=== PATIENT | female | born 1945 | race Caucasian/White ===

== ENCOUNTER 2019-05-30 09:47 | Outpatient (CLI) | payer MEDICARE, SELFPAY ==
--- NOTE | ~2019-05-30 | MM_ITS ---
EXAMINATION: MM screening rafi BI w haris HISTORY: Screening mammogram TECHNIQUE: Craniocaudal and mediolateral oblique 3-D tomosynthesis images were obtained and synthetic 2-D images were generated. CAD analysis was submitted and interpreted. COMPARISON: 03/23/2018, 06/30/2016, 11/03/2015 bilateral digital screening mammogram examinations BREAST PARENCHYMAL COMPOSITION: The breasts are almost entirely fatty. FINDINGS: surveillance system monitor device and pacemaker are noted on the left. There is no evidence of suspici ous mass, calcification, or architectural distortion to suggest malignancy in either breast. There webb s been no suspicious interval change. IMPRESSION: 1. No mammographic evidence of malignancy. 2. Recommend routine screening mammography in one year. BI-RADS Category 1: Negative Reviewed, dictated and finalized at location A. UP WORKER
== END 2019-05-30 09:48 | disposition home or self-care (01) ==
LOC: ANHIMG 09:52
PROVIDERS: PCP Family Medicine; Visit Provider Obstetrics & Gynecology
DX: Z12.31 Encounter for screening mammogram for malignant neoplasm of breast (principal)
CPT/HCPCS: 77063; 77067

== ENCOUNTER 2020-09-06 08:05 | Outpatient (CLI) | payer MEDICARE, SELFPAY ==
[2020-09-06 08:23] LABS: Basophils Percent Auto 0.6 % (0.2-1.2); Eosinophils Absolute Auto 0.2 K/mm3 (0-0.3); Eosinophils Percent Auto 3.2 % (0-4.4); Hematocrit 42.1 % (37.0-47.0); Immature Granulocyte Absolute 0.01 K/mm3 (0.00-0.031); Immature Granulocyte Percent A 0.2 % (0-0.5); Lymphocytes Absolute Auto 1.57 K/mm3 (0.9-3.2); Lymphocytes Percent Auto 31.8 % (18.3-44.2); Mean Corpuscular HGB Conc 33.3 g/dl (32-36); Mean Corpuscular Hemoglobin 30.4 pg (26-34); Mean Corpuscular Volume 91.5 fl (80-100); Mean Platelet Volume 9.4 fl (7.4-10.4); Monocytes Absolute Auto 0.5 K/mm3 (0.1-0.6); Monocytes Percent Auto 10.5 % (2.6-8.5); Neutrophils Absolute Auto 2.6 K/mm3 (1.3-6.7); Neutrophils Percent Auto 53.7 % (45.5-73.1); Platelet Count Result 197 k/mm3 (150-375); Red Cell Distribution Width 13.3 % (11.5-14.5); White Blood Count 4.9 K/mm3 (4.5-10.0)
[2020-09-06 08:35] LABS: Alanine Aminotransferase 27 U/L (4-35); Albumin Level 4.4 g/dL (3.5-5.1); Alkaline Phosphatase 140 U/L (38-126); Anion Gap 11 mmol/L (8-16); Aspartate Amino Transferase 35 U/L (14-36); Bilirubin,Total 0.7 mg/dL (0.2-1.3); Blood Urea Nitrogen 24 mg/dL (7-17); Calcium 9.9 mg/dL (8.4-10.2); Carbon Dioxide 23 mmol/L (22-30); Chloride 110 mmol/L (98-107); Cholesterol 173 mg/dL (0-200); Estimated Glomerular Filt Rate 54; Glucose 102 mg/dL (65-105); HDL Direct 86 mg/dL; Potassium 4.2 mmol/L (3.4-5.0); Sodium 144 mmol/L (137-145); Triglycerides 155 mg/dL (<150)
[2020-09-06 08:46] LABS: LDL Cholesterol Direct 55 mg/dL
[2020-09-06 09:26] LABS: Vitamin B12 > 1000.0 pg/mL (239-931)
[2020-09-06 09:37] LABS: Vitamin D 25 Hydroxy 87.3 ng/mL
== END 2020-09-06 08:06 | disposition home or self-care (01) ==
PROVIDERS: PCP Family Medicine; Visit Provider Nurse Practitioner Family
DX: E78.5 Hyperlipidemia, unspecified (principal); E53.8 Deficiency of other specified B group vitamins; R20.0 Anesthesia of skin; E78.2 Mixed hyperlipidemia; E55.9 Vitamin D deficiency, unspecified
CPT/HCPCS: 36415; 80053; 80061; 82306; 82607; 84443; 85025

== ENCOUNTER 2020-12-04 07:17 | Outpatient (RCR) | payer MEDICARE, SELFPAY ==
--- NOTE | 2020-12-04 08:21 | OTOPEVAL ---
OCCUPATIONAL THERAPY EVALUATION REPORT AND DISCHARGE SUMMARY 12/04/20 Radha is a 75 year-old, right handed female that presents to outpatient OT with OA of the right middle finger. At this time the patient does not have pain, but does have reports of weakness, noting difficulties with opening jars/containers and intermittently dropping items. Issued HEPs for active ROM and strengthening. Discussed at length joint protection techniques, activity modifications, and use of adaptive equipment/techniques for ADLs. Patient verbalizes excellent understanding of all materials today and is in agreement with discharge. D/C today with patient independent with HEP. Thank you for referring Radha Faye to [facility].? Please review, sign, date and return this D/C Note BRENT. I agree with and certify that the following plan of care is medically necessary. Referring Physician Date Referring Provider: Leonid Khan MD *OT Outpatient Evaluation Start: 12/04/20 07:30 Evaluation Information Problem Diagnosis Primary OA, right hand Onset about 6 months Subjective Information Patient reports difficulties Query Text:As Reported By Patient/ with stiffness, pain, and Family weakness in her right, dominant hand, particularly the middle finger. Pain Assessment Timing of Pain Assessment Timing of Pain Assessment Assessment Pain Scale Pain Scale Used Numeric (1 - 10) Self Report Pain Assessment Right Finger, Middle Reported Pain Level 0 Lowest Pain Intensity 0 Greatest Pain Intensity 10 Pain Score Pain Score 0: Self Report Additional Pain Score Comments Patient reports when her hand is bad the pain can get up to 9-10. Upper Extremity Range of Motion Finger Range of Motion Right Reason Not Measured WNL/Right Finger Range of Motion Comments Active ROM of all digits is WNL. Full fist, hook fist, lumbricals, and serial opposition is intact. Hand Inletter/Pinch Strength Assessment Hand Left Inletter Strength (lbs) 42 Hand Inletter/Pinch Strength Comments Norm: 42 lbs. Right Inletter Strength (lbs) 36 Hand Inletter/Pinch Strength Comments Norm: 48 lbs. Upper Extremity Exercise Finger/Thumb Exercise Right Other Finger/Thumb Exercises Instructed in active ROM. Patient completes 10 reps: - lumbricals/intrinsic plus - hook fist - full fist - serial opp - finger/thumb abduction and adduction Instructed in gentle strengthening with red putty.
== END 2020-12-04 09:12 | disposition home or self-care (01) ==
LOC: ANHOT 07:17
PROVIDERS: PCP Family Medicine; Visit Provider Orthopaedic Surgery
DX: M19.041 Primary osteoarthritis, right hand (principal)
CPT/HCPCS: 97110; 97165

== ENCOUNTER 2021-05-04 08:46 | Outpatient (CLI) | payer MEDICARE, SELFPAY ==
[2021-05-04 09:49] LABS: Hematocrit 45.5 % (37.0-47.0); Hemoglobin 14.9 g/dL (12.0-15.0); Mean Corpuscular HGB Conc 32.7 g/dl (32-36); Mean Corpuscular Hemoglobin 30.5 pg (26-34); Mean Corpuscular Volume 93.2 fl (80-100); Mean Platelet Volume 9.7 fl (7.4-10.4); Platelet Count Result 214 k/mm3 (150-375); Red Blood Count 4.88 M/mm3 (4.2-5.4); Red Cell Distribution Width 12.8 % (11.5-14.5); White Blood Count 4.2 K/mm3 (4.5-10.0)
[2021-05-04 10:00] LABS: Potassium 4.1 mmol/L (3.4-5.0)
[2021-05-04 10:15] LABS: Alanine Aminotransferase 17 U/L (4-35); Albumin Level 4.6 g/dL (3.5-5.1); Alkaline Phosphatase 106 U/L (38-126); Anion Gap 6 mmol/L (8-16); Aspartate Amino Transferase 29 U/L (14-36); Bilirubin,Total 1.1 mg/dL (0.2-1.3); Blood Urea Nitrogen 19 mg/dL (7-17); Calcium 9.6 mg/dL (8.4-10.2); Carbon Dioxide 28 mmol/L (22-30); Chloride 105 mmol/L (98-107); Estimated Glomerular Filt Rate 54; Glucose 104 mg/dL (65-110); Sodium 139 mmol/L (137-145)
== END 2021-05-04 08:47 | disposition home or self-care (01) ==
PROVIDERS: PCP Family Medicine; Visit Provider Nurse Practitioner Family
DX: K11.20 Sialoadenitis, unspecified (principal); F32.A Depression, unspecified; F41.9 Anxiety disorder, unspecified; R20.0 Anesthesia of skin; E86.0 Dehydration
CPT/HCPCS: 36415; 80053; 84443; 85027

== ENCOUNTER 2021-08-07 01:31 | Day surgery (SDC) | payer MEDICARE, SELFPAY ==
--- NOTE | 2021-07-29 15:39 | PC.NURSE ---
Report to the Outpatient Waiting Room, entrance under the green pavilion located off [facility], at time __1000 on date _08/07/21 . OR Time: _1200 . - You and your visitor will be asked a series of questions to screen for COVID 19 for your protection. - Only one visitor is allowed at this time. - The patient visitor is requested to leave or wait in car when not with patient. - A mask is required within the hospital. Patients may have clear liquids (water, carbonated beverages, clear teas, apple juice) until 3 hours prior to surgery with a maximum of 20 ounces. - No food from midnight until time of surgery - Infants may have breast milk until 4 hours before surgery, infant formula 6 hours prior to surgery. - Children will be allowed to drink immediately following surgery. If applicable, please bring a bottle or sippy cup to assist with drinking. Juice, water, soda, and popsicles are readily available. For infants on formula, please bring formula the day of surgery. Pacifiers are allowed. Take the following medications with a SIP of water the morning of surgery: ___NONE Medications to discontinue per physician __PLAVIX PER DR LECHUGA-PT WILL CALL Date to take last dose Please no make-up, nail italian, hairspray, perfume, deodorant, or body powder the day of surgery. No jewelry (including any body piercings) or valuables the day of surgery, leave them at home. Please take a shower or bath the night before, or the morning of, surgery with an antibacterial soap. Wear comfortable, loose fitting clothing. Children are encouraged to wear pajamas. - Jewelry must be removed prior to entering the operating room. Rings and piercings that are not removed may be cut off. - The hospital will not accept responsibility for valuables. - Please leave all valuables, including medications, at home the day of surgery. If you are going home after surgery, a licensed vibratory pile driver must drive you home. - NO public transportation without another adult. - We recommend that an adult stay with you for 24 hours following discharge. - We also recommend that you do not drive, make important decision, drink alcoholic beverages, or take any drugs that were not prescribed by your health care provider for at least 24 hours after your discharge time. For Pediatric surgeries, we recommend two adults accompany the child home (only one inside the building at this time). Follow any additional instructions given to you from your surgeon. If you or anyone in your household have experienced Covid symptoms in the past week, please notify your surgeon or the nurse liaison at the phone number below for possible testing. Telephone instructions given to ___PATIENT and asked if any additional questions and then verbalized understanding. Patient advised to call surgeon office or pre surgery nurse liaison [phone] if any additional questions.
[2021-07-29 15:44] VITALS: BMI 24.9
--- NOTE | 2021-08-06 16:26 | PM.IMHP ---
H&P: HPI History of Present Illness Date/Time: 08/06/21 16:26 Chief Complaint: Pharyngeal lesion Narrative: patient presents for planned surgical procedure no change in history no change in symptoms Review of Systems Constitutional: Constitutional: Denies fatigue, Denies fever(s) and Denies lethargy Eyes: Eyes: Denies blurry vision and Denies change in vision ENT: Reports as per HPI Cardiovascular: Cardiovascular: Denies chest pain Respiratory: Respiratory: Denies cough Endocrine: Endocrine: Denies fatigue Hematologic/Lymphatic: Hematologic/Lymphatic: Denies easy bleeding, Denies easy bruising and Denies lymphadenopathy Allergic/Immunologic: Allergic/Immunologic: Denies seasonal rhinorrhea FORMERLY [facility] Past Medical History Medical History Acid reflux BMI 25.0-25.9,adult BMI 28.0-28.9,adult Heart attack Height loss High cholesterol History of vaginal delivery x 2 Stroke Surgical History Surgical History H/O excision of mass 09/22/20 excision of skin cyst left buttock H/O hand surgery History of ankle surgery History of back surgery History of cardiac radiofrequency ablation History of open heart surgery History of replacement of both shoulder joints History of tubal ligation Pacemaker S/P right knee surgery Family History Family History Mother Hypertension Father Hypertension Family history of coronary artery disease Family history of emphysema Family history of congenital heart disease Sibling Emphysema of lung Social History Social History Smoking status: Never smoker Second hand tobacco smoke exposure: No Alcohol intake: former Substance use: never Substance use type: does not use Additional living arrangements comments: was dx with Alzheimer's two years ago 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 Gender identity (if verbalized by the patient): Female Spiritual care concerns: No Meds Home Medications and Allergies Home Medications Medication Instructions Recorded Confirmed Type metoprolol succinate 25 mg 25 mg PO HS 05/21/19 07/29/21 History tablet,extended release 24 hr cholecalciferol (vitamin D3) 1,250 1,250 mcg PO WEEKLY 03/02/21 07/29/21 History mcg (50,000 unit) tablet clopidogrel 75 mg tablet See Rx Instructions .ROUTE 06/26/21 07/29/21 Rx .COMPLEX #90 tablet atorvastatin 40 mg PO HS 07/29/21 07/29/21 History bupropion HCl [Wellbutrin XL] 300 mg PO HS 07/29/21 07/29/21 History famotidine 20 mg PO HS 07/29/21 07/29/21 History Allergies Allergy/AdvReac Type Severity Reaction Status Date / Time codeine Allergy Unknown Nausea And Verified 07/29/21 15:09 Vomiting morphine Allergy Unknown Nausea Verified 07/29/21 15:09 Penicillins Allergy Unknown Unknown Verified 07/29/21 15:09 quinine AdvReac Intermediate NAUSEA/VOMI Verified 07/29/21 15:09 TING Exam Const: General: cooperative, healthy appearing, comfortable, well developed and alert HENMT: Head: normal to inspection, normocephalic and atraumatic Ears: hearing grossly normal bilaterally, external ears normal, TM's normal bilaterally and EAC's normal General nose exam: Normal external nose present, Normal nares present, No nasal polyps present, Normal nasal mucous membranes and turbinates present and Normal septum present Face and sinus: normal facial exam Mouth: Yes Normal oral and palatal mucosa present, Yes lip normal, Yes tongue normal, Yes oropharynx normal and Yes moist mucous membranes Teeth and gingiva: dentition normal and gingiva normal Throat: posterior oropharynx normal, tonsils normal and uvula midline Eyes: General: appearance normal, both eyes and all related structures Periorbital: periorbital f
--- NOTE | 2021-08-07 07:15 | WPDHPUPDATE1 ---
History and Physical Update Update Date/Time: 08/07/21 07:15 History and Physical has been reviewed, including an updated exam of the patient. There are NO changes in the patient's condition. Risks, benefits, and alternatives have been discussed and questions answered. Patient agrees to proceed with procedure.
[2021-08-07 13:54] VITALS: BP 125/64; PULSE 75; RESP 18; TEMP 36.6; O2SAT 97; BMI 24.8
[2021-08-07] MEDS: LACTATED RINGERS 1,000 ML 30 ML IV CONT (14:00)
--- NOTE | 2021-08-07 15:40 | WPDANESEPPF ---
Anes - Initial Pre Proc Eval Procedure: Operation Date: 08/07/21 14:30 Proposed Procedures p Direct Laryngoscopy, with Biopsy of Right Pharyngeal Lesion - Ethan Gutierres MD Date/Time: 08/07/21 15:40 Surgeon: Ethan Gutierres MD Pre Op Diagnosis: pharyngeal lesion Patient Data Age: 75 Gender: F Height: 1.63 m Weight: 65.7 kg Last Vital Signs Temp 36.6 C 08/07/21 13:54 Pulse 75 08/07/21 13:54 Resp 18 08/07/21 13:54 BP 125/64 08/07/21 13:54 Pulse Ox 97 08/07/21 13:54 Allergies Allergy/AdvReac Type Severity Reaction Status Date / Time Penicillins Allergy Intermediate Nausea and Verified 08/07/21 12:54 Vomiting codeine Allergy Mild Nausea And Verified 08/07/21 12:54 Vomiting morphine Allergy Mild Nausea Verified 08/07/21 12:54 quinine AdvReac Intermediate NAUSEA/VOMI Verified 08/07/21 12:54 TING Home Medications Medication Instructions Recorded Confirmed Type metoprolol succinate 25 mg 25 mg PO HS 05/21/19 08/07/21 History tablet,extended release 24 hr cholecalciferol (vitamin D3) 1,250 1,250 mcg PO WEEKLY 03/02/21 08/07/21 History mcg (50,000 unit) tablet atorvastatin 40 mg PO HS 07/29/21 08/07/21 History bupropion HCl [Wellbutrin XL] 300 mg PO HS 07/29/21 08/07/21 History famotidine 20 mg PO HS 07/29/21 08/07/21 History aspirin [Adult Low Dose Aspirin] 81 mg PO DAILY 08/07/21 08/07/21 History Patient hx anesthesia problems: none Family hx anesthesia problems: none Results Review: All pre-operative results and documents have been reviewed as part of the pre-operative evaluation. [facility]LY [facility] Past Medical History Medical History Acid reflux BMI 25.0-25.9,adult BMI 28.0-28.9,adult Heart attack Height loss High cholesterol History of vaginal delivery x 2 Stroke Surgical History Surgical History H/O excision of mass 09/22/20 excision of skin cyst left buttock H/O hand surgery History of ankle surgery History of back surgery History of cardiac radiofrequency ablation History of open heart surgery History of replacement of both shoulder joints History of tubal ligation Pacemaker S/P right knee surgery Family History Family History Mother Hypertension Father Hypertension Family history of coronary artery disease Family history of emphysema Family history of congenital heart disease Sibling Emphysema of lung Social History Social History Smoking status: Never smoker Second hand tobacco smoke exposure: No Alcohol intake: former Substance use: never Substance use type: does not use Living arrangements: with family Additional living arrangements comments: was dx with Alzheimer's two years ago 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 Informed Consent: The patient's anesthetic plan and its attendant risks and benefits were discussed with the patient/family/POA. Questions were solicited and answers provided to the satisfaction of the patient/family/POA.
--- NOTE | 2021-08-07 15:46 | SUR.PREOP ---
1300; PT AWARE THAT DR LECHUGA IS 1 HOUR DELAYED.
--- NOTE | 2021-08-07 15:55 | SUR.PREOP ---
SPOKE WITH DR LECHUGA. NO ANTIBIOTIC NEEDED.
[2021-08-07] MEDS: OXYMETAZOLINE HCL 0.05% NAS 15 ML BTL (*BKC) 1 SPRAY NASAL (16:12)
[2021-08-07 16:33] VITALS: BP 145/69; PULSE 72; RESP 10; TEMP 36.6; O2SAT 100
[2021-08-07 16:48] VITALS: BP 146/91; PULSE 72; RESP 15; O2SAT 97
--- NOTE | 2021-08-07 16:52 | W.PM.PROC2 ---
Procedure Note - Detailed Date of Procedure 08/07/21 Pre-op Diagnosis pharyngeal lesion Post-op Diagnosis Same Procedure Performed Direct laryngoscopy with biopsy of right pharyngeal vallecular lesion Surgeon Ethan Gutierres MD Anesthesia General Indications See above Findings Scant amount of mucus tracking into the vallecular right pharyngeal region. No cystic lesion noted today. Base of, or location of previous lesion biopsy to ensure nothing sinister. Description of Procedure Patient identified consent verified. Patient brought operating room. Time-out performed. General anesthesia induced endotracheal tube secured secured airway. Patient prepped and draped for for mentioned procedure bed rotated. Second time-out performed. Dedo laryngoscope inserted in airway after placement maxillary tooth mouth guard. All the anatomic sub sites were reviewed. Small erythroplakia lesion with scant mucus emanating around it on the right loculated pharyngeal region. Cyst or the mucus was suctioned in the region biopsied bleeding controlled with the application of 2 Afrin-soaked pledgets. There was no bleeding following application of pledgets hemostasis was excellent. Biopsy sent for pathologic analysis. Laryngoscope removed maxillary tooth mouth guard removed. Care patient turned Anesthesiology. Total blood loss 1-2 cc. I performed all dictated portions of the procedure there were no immediate complications. Estimated Blood Loss 2 Drains No Packing No Pathology None sent Complications No immediate complications Condition Stable Disposition PACU
[2021-08-07 17:01] VITALS: BP 146/91; PULSE 72; RESP 15; O2SAT 98
[2021-08-07 17:13] VITALS: BP 140/49; PULSE 70
[2021-08-07 17:45] VITALS: BP 133/62; PULSE 67
--- NOTE | 2021-08-07 17:57 | SUR.PHASEII ---
Patient can resume aspirin tomorrow per Dr. Gutierres.
== END 2021-08-07 18:00 | disposition home or self-care (01) ==
PROVIDERS: PCP Family Medicine; Visit Provider Otolaryngology
PROC: 0CJS8ZZ Inspection of Larynx, Via Natural or Artificial Opening Endoscopic (ICD-10-PCS; CPT 31535; principal; 2021-08-07 14:30)
DX: J39.2 Other diseases of pharynx (principal); K21.9 Gastro-esophageal reflux disease without esophagitis; E78.00 Pure hypercholesterolemia, unspecified; I25.2 Old myocardial infarction; Z86.73 Personal history of transient ischemic attack (TIA), and cerebral infarction without residual deficits; Z79.82 Long term (current) use of aspirin
CPT/HCPCS: 31535; 88305; A9270; J0330; J0690; J1100; J2704; J7120

== ENCOUNTER 2021-08-19 08:26 | Outpatient (CLI) | payer MEDICARE, SELFPAY ==
--- NOTE | ~2021-08-19 | XR_ITS ---
[XR ribs BI 3V w CXR 2V ] INDICATION: Chest pain TECHNIQUE: Frontal projection of the upper ribs, frontal projection of the lower ribs, oblique projec tion of all the ribs, frontal inspiratory chest x-ray for interpretation. FINDINGS: Status post median sternotomy for CABG. Pacemaker leads are in expected position. There are bilateral shoulder arthroplasties. There are no displaced rib fractures identified. There are no so ft tissue abnormality seen. The lungs are clear. IMPRESSION: 1:No acute displaced rib fractures. Reviewed, dictated and finalized at location A.
--- NOTE | ~2021-08-19 | XR_ITS ---
EXAMINATION: XR shoulder LT min 2V DATE: 08/19/2021 09:05 INDICATION: Shoulder pain TECHNIQUE: AP internally and externally rotated, AP oblique externally rotated and transscapular Y vi ews of the left shoulder were obtained. COMPARISON: 01/14/2014 FINDINGS: Stable appearance of a noncemented left total shoulder arthroplasty which is in near-anatomic alignme nt. No fracture.Mild acromioclavicular joint. Partially visualized Cardiac pacemaker in expected position. Left pectoral implantable residential monitor. Visualized portion s of the left lung are clear. Soft tissues are unremarkable. IMPRESSION: Left total shoulder arthroplasty in near-anatomic alignment with no acute osseous abnormality. 2. Mild left acromioclavicular osteoarthritis. Reviewed, dictated and finalized at location B. IMPRESSION: Left total shoulder arthroplasty in near-anatomic alignment with no acute osseo us abnormality. 2. Mild left acromioclavicular osteoarthritis.
--- NOTE | ~2021-08-19 | XR_ITS ---
EXAMINATION: XR shoulder RT min 2V DATE: 08/19/2021 09:05 INDICATION: Right shoulder pain TECHNIQUE: AP internally and externally rotated, AP oblique externally rotated and transscapular Y vi ews of the right shoulder were obtained. COMPARISON: 11/06/2020 FINDINGS: Stable appearance of a noncemented right total shoulder arthroplasty which is unchanged in near-anato heather alignment. No fracture. Again seen is thinning of the acromion which could be related to either p rior acromioplasty or secondary to chronic degenerative remodeling. Mild to moderate acromioclavicula r osteoarthritis with small inferiorly directed osteophyte at the lateral head of the clavicle. Soft tissues are unremarkable. Calcified nodule in the right lung consistent with old granulomatous diseas e. Median sternotomy wires, ostial markers and mediastinal surgical clips consistent with prior coron jose artery bypass grafting. Dual lead cardiac pacemaker visualized portion of which appear unremarkab le. IMPRESSION: 1. Stable appearance of a right total shoulder arthroplasty which is in near-anatomic alignment. No a cute osseous abnormality. 2. Mild to moderate right acromioclavicular osteoarthritis. Reviewed, dictated and finalized at location B. IMPRESSION: 1. Stable appearance of a right total shoulder arthroplasty which is in near-an atomic alignment. No acute osseous abnormality. 2. Mild to moderate right acromioclavicular osteoarthritis.
[2021-08-19 09:02] LABS: Cholesterol 170 mg/dL (0-200); HDL Direct 73 mg/dL; Triglycerides 68 mg/dL (<150)
[2021-08-19 09:14] LABS: LDL Cholesterol Direct 58 mg/dL
--- NOTE | 2021-08-19 10:06 | ECHO_ITS ---
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 Strain analysis performed. Summary 1. Complete two-dimensional, color flow and Doppler transthoracic echocardiogram is performed. 2. Left ventricular chamber dimension is normal. 3. Left ventricular systolic function is normal, estimated at 65-70%. 4. There is mildly increased left ventricular wall thickness. 5. The left ventricular diastolic function is grade I diastolic dysfunction. 6. E/e' 11 is mildly elevated. 7. Linear artifact in right ventricle suggestive of catheter(s), pacemaker lead(s), or ICD lead(s). 8. Linear artifact in the right atrium suggestive of catheter(s), pacemaker lead(s), or ICD lead(s). 9. There is mild aortic valve sclerosis. 10. There is mild aortic valve regurgitation. 11. The mitral valve has mildly thickened leaflets and mildly calcified annulus. 12. There is mild mitral valve regurgitation. 13. There is mild to moderate tricuspid valve regurgitation. 14. No pulmonary hypertension, estimated pulmonary arterial systolic pressure is 32 mmHg. Left Ventricle E/e' 11 is mildly elevated. Global longitudinal strain is normal at -17.4%. Ventricular septum is mildly sigmoid shaped. No LVOT obstruction. Left ventricular chamber dimension is normal. Left ventricular systolic function is normal, estimated at 65-70%. There is mildly increased left ventricular wall thickness. The left ventricular diastolic function is grade I diastolic dysfunction. Right Ventricle Linear artifact in right ventricle suggestive of catheter(s), pacemaker lead(s), or ICD lead(s). Right ventricular chamber dimension is normal. Right ventricular systolic function is normal. Left Atria Left atrial chamber dimension is normal. Right Atria Linear artifact in the right atrium suggestive of catheter(s), pacemaker lead(s), or ICD lead(s). Right atrial chamber dimension is normal. Aortic Valve The aortic valve is trileaflet. There is mild aortic valve sclerosis. There is no aortic valve stenosis. There is mild aortic valve regurgitation. Pulmonic Valve There is no pulmonic regurgitation. Mitral Valve The mitral valve has mildly thickened leaflets and mildly calcified annulus. There is no mitral valve stenosis. There is mild mitral valve regurgitation. Tricuspid Valve There is mild to moderate tricuspid valve regurgitation. No pulmonary hypertension, estimated pulmonary arterial systolic pressure is 32 mmHg. Pericardium/Pleural There is no pericardial effusion. Inferior Vena Cava Normal inferior vena cava with >50% collapse upon inspiration consistent with normal right atrial pressure, 5 mmHg. Aorta The aortic root size at the sinus of Valsalva is normal. Left Ventricular Outflow Tract Name Value Normal
== END 2021-08-19 08:27 | disposition home or self-care (01) ==
PROVIDERS: PCP Family Medicine; Referring Provider Physician Assistant Medical; Visit Provider Internal Medicine Cardiovascular Disease
DX: I42.1 Obstructive hypertrophic cardiomyopathy (principal); M25.511 Pain in right shoulder; M25.512 Pain in left shoulder; R07.89 Other chest pain; Z95.0 Presence of cardiac pacemaker; I08.3 Combined rheumatic disorders of mitral, aortic and tricuspid valves; Z96.611 Presence of right artificial shoulder joint; M19.012 Primary osteoarthritis, left shoulder; M19.011 Primary osteoarthritis, right shoulder; Z96.612 Presence of left artificial shoulder joint
CPT/HCPCS: 36415; 71046; 71110; 73030; 80061; 93306

== ENCOUNTER 2021-10-08 15:05 | Outpatient (CLI) | payer MEDICARE, SELFPAY ==
--- NOTE | ~2021-10-08 | DEXA_ITS ---
Bone Density Report Name: GEE CRESPO Age: 75 Sex: Female Ethnicity: White Date of : 1945 Indication: postmenopausal; screening for osteoporosis; height loss; prior fracture; Referring Provider: FLORENTIN LION Study: Bone densitometry was performed. Exam Date: October 08, 2021 Accession number: [id number] Bone Density: Region BMD T-score Z-score Classification AP Spine(L1, L2, L3) 0.979 -0.4 2.1 Normal Femoral Neck (Left) 0.736 -1.0 1.1 Normal Total Hip (Left) 0.892 -0.4 1.5 Normal Femoral Neck (Right) 0.758 -0.8 1.3 Normal Total Hip (Right) 0.898 -0.4 1.5 Normal Total Hip Mean 0.895 -0.4 1.5 Normal World Health Organization criteria for BMD impression classify patients as: Normal (T-score at or above -1.0), Osteopenia (T-score between -1.0 and -2.5), or Osteoporosis (T-score at or below -2.5). 10-year Fracture Risk: FRAX not reported because: All T-scores for Spine Total, Hip Total, Femoral Neck at or above -1.0 Previous Exams: Region Exam Age BMD T-score BMD Change BMD Change Date g/cm2 vs Baseline vs Previous AP Spine (L1-L3) 10/08/2021 75 0.979 -0.4 0.109 (12.5%)# 0.058 (6.3%)* 12/06/2018 73 0.921 -0.9 0.051 (5.8%)# 0.069 (8.1%)* 06/30/2016 70 0.852 -1.5 -0.018 (-2.1%) -0.018 (-2.1%) 12/05/2012 67 0.870 -1.3 Total Hip(Left) 10/08/2021 75 0.892 -0.4 -0.047 (-5.0%) -0.067 (-7.0%) 12/06/2018 73 0.959 0.1 0.020 (2.2%)# 0.037 (4.0%)* 06/30/2016 70 0.922 -0.2 -0.017 (-1.8%) -0.017 (-1.8%) 12/05/2012 67 0.939 0.0 Total Hip(Right) 10/08/2021 75 0.898 -0.4 -0.046 (-4.9%) -0.058 (-6.0%) 12/06/2018 73 0.956 0.1 0.011 (1.2%)# 0.012 (1.2%) 06/30/2016 70 0.944 0.0 0.000 (0.0%)# 0.000 (0.0%)# 12/05/2012 67 0.944 0.0 *Denotes significance at 95% confidence level, LSC for AP Spine = 0.022 g/cm2, LSC for Total Hip = 0.027 g/cm2 # Denotes dissimilar scan types or analysis methods Clinical Information Provided by Patient: Has had a low trauma fracture Has used the following medications: Vitamin D, Calcium Patient maximum height was 67.5 Menopause Age: 49 No regular weight bearing exercise Onset of menses at age 12 Number of children 2 Impression: The patient has normal bone mass. The patient has risk factors, including: previous fracture. The BMD for the Total Hip(Left) decreased, changing by -7.0% since the last DXA exam. The BMD for the Total Hip(Rig
--- NOTE | ~2021-10-08 | MM_ITS ---
EXAMINATION: MM screening [facility] BI w [facility] HISTORY: Screening mammogram TECHNIQUE: Craniocaudal and mediolateral oblique 3-D tomosynthesis images were obtained and synthetic 2-D images were generated. CAD analysis was submitted and interpreted. COMPARISON: 05/30/2019, 03/23/2018 BREAST PARENCHYMAL COMPOSITION: The breasts are almost entirely fatty. FINDINGS: There is no suspicious mass, calcification, or architectural distortion to suggest malignan cy in either breast. There has been no suspicious interval change. IMPRESSION: 1. No mammographic evidence of malignancy. 2. Recommend routine screening mammography in one year. BI-RADS Category 1: Negative Reviewed, dictated and finalized at location A.
== END 2021-10-08 15:06 | disposition home or self-care (01) ==
PROVIDERS: PCP Family Medicine; Visit Provider Obstetrics & Gynecology
DX: Z12.31 Encounter for screening mammogram for malignant neoplasm of breast (principal); R29.890 Loss of height; Z78.0 Asymptomatic menopausal state
CPT/HCPCS: 77063; 77067; 77080

== ENCOUNTER 2022-09-14 09:27 | Outpatient (CLI) | payer MEDICARE, SELFPAY ==
[2022-09-14 10:07] LABS: Alanine Aminotransferase 22 U/L (6-35); Albumin Level 4.5 g/dL (3.5-5.1); Alkaline Phosphatase 109 U/L (38-126); Anion Gap 8 mmol/L (8-16); Aspartate Amino Transferase 27 U/L (14-36); Bilirubin,Total 0.8 mg/dL (0.2-1.3); Blood Urea Nitrogen 27 mg/dL (7-17); Calcium 9.5 mg/dL (8.4-10.2); Carbon Dioxide 25 mmol/L (22-30); Chloride 106 mmol/L (98-107); Cholesterol 149 mg/dL (0-200); Estimated Glomerular Filt Rate > 60; Glucose 92 mg/dL (65-110); HDL Direct 67 mg/dL; Potassium 4.2 mmol/L (3.4-5.0); Sodium 139 mmol/L (137-145); Triglycerides 96 mg/dL (<150)
[2022-09-14 10:18] LABS: LDL Cholesterol Direct 61 mg/dL
== END 2022-09-14 09:28 | disposition home or self-care (01) ==
PROVIDERS: PCP Family Medicine; Visit Provider Internal Medicine Cardiovascular Disease
DX: E78.5 Hyperlipidemia, unspecified (principal)
CPT/HCPCS: 36415; 80053; 80061

== ENCOUNTER 2023-01-27 13:31 | Outpatient (CLI) | payer MEDICARE, SELFPAY ==
--- NOTE | ~2023-01-27 | CT_ITS ---
EXAMINATION: CT knee RT wo con DATE: 01/27/2023 14:09 INDICATION: Right knee pain. TECHNIQUE: Computed tomography (CT) of the right knee was performed without intravenous contrast. Aut omated exposure control and iterative reconstruction technique were employed. The dose-length product was 535.65 mGy-cm. COMPARISON: None FINDINGS: Bone alignment is normal. No fracture. There is moderate osteoarthritis of lateral compartm ent and mild osteoarthritis of medial and patellofemoral compartments. There is a small knee joint ef fusion. IMPRESSION: 1. Moderate right knee osteoarthritis. 2. Small right knee joint effusion. Reviewed, dictated and finalized at location E.
== END 2023-01-27 13:32 | disposition home or self-care (01) ==
PROVIDERS: PCP Family Medicine; Visit Provider Physician Assistant Medical
DX: M17.11 Unilateral primary osteoarthritis, right knee (principal); M25.461 Effusion, right knee; M25.561 Pain in right knee; G89.29 Other chronic pain
CPT/HCPCS: 73700

== ENCOUNTER 2023-04-07 15:27 | Outpatient (CLI) | payer MEDICARE, SELFPAY ==
--- NOTE | ~2023-04-07 | MM_ITS ---
EXAMINATION: MM screening [facility] BI w [facility] HISTORY: Screening mammogram TECHNIQUE: Craniocaudal and mediolateral oblique 3-D tomosynthesis images were obtained and synthetic 2-D images were generated. CAD analysis was submitted and interpreted. COMPARISON: 10/08/2021, 05/30/2019, 03/23/2018 BREAST PARENCHYMAL COMPOSITION: The breasts are almost entirely fatty. FINDINGS: No suspicious mass, calcification, or architectural distortion are identified in either elan ast to suggest malignancy. There has been no suspicious interval change. IMPRESSION: 1. No mammographic evidence of malignancy. 2. Recommend routine screening mammography in one year. BI-RADS Category 1: Negative Reviewed, dictated and finalized at location A. MAKER
== END 2023-04-07 15:28 | disposition home or self-care (01) ==
PROVIDERS: PCP Family Medicine; Visit Provider Obstetrics & Gynecology
DX: Z12.31 Encounter for screening mammogram for malignant neoplasm of breast (principal)
CPT/HCPCS: 77063; 77067

== ENCOUNTER 2023-07-25 03:47 | Day surgery (SDC) | payer MEDICARE, SELFPAY ==
[2023-07-22 13:52] VITALS: BMI 24.0
[2023-07-25] VITALS (8 sets, daily range): BP systolic 106–128; BP diastolic 53–64; PULSE 70–77; RESP 14–20; TEMP 36.6–36.8; O2SAT 95–99; BMI 24.0
--- NOTE | 2023-07-25 10:09 | WPDMODSED ---
Moderate Sedation Note-Pt Data Patient Data Diagnosis: Permanently implanted pacemaker at [facility] Present Complaint: no complaint Procedure to be performed/Plan: pacemaker generator change Allergies Allergy/AdvReac Type Severity Reaction Status Date / Time Penicillins AdvReac Intermediate Nausea and Verified 07/25/23 08:20 Vomiting quinine AdvReac Intermediate NAUSEA/VOMI Verified 07/25/23 08:20 TING codeine AdvReac Mild Nausea And Verified 07/25/23 08:20 Vomiting morphine AdvReac Mild Nausea Verified 07/25/23 08:20 Home Medications Medication Instructions Recorded Confirmed Type cholecalciferol (vitamin D3) 1,250 1,250 mcg PO WEEKLY 03/02/21 07/25/23 History mcg (50,000 unit) tablet (Dialyvite Vitamin D3 Max) aspirin 81 mg tablet 81 mg PO DAILY 08/07/21 07/25/23 History bupropion HCl 300 mg 24 hr tablet, 300 mg PO DAILY #90 tabs 03/10/23 07/25/23 Rx extended release metoprolol succinate 25 mg See Rx Instructions .Route 03/17/23 07/25/23 Rx tablet,extended release 24 hr .COMPLEX #90 tabs atorvastatin 40 mg tablet See Rx Instructions .Route 05/02/23 07/25/23 Rx .COMPLEX #90 tabs Sedation/Anesthesia: No previous sedation/anesthesia problems (including family history). [facility] Past Medical History Medical History Acid reflux BMI 25.0-25.9,adult BMI 28.0-28.9,adult Heart attack Height loss High cholesterol History of vaginal delivery x 2 Stroke Surgical History Surgical History H/O excision of mass 09/22/20 excision of skin cyst left buttock H/O hand surgery History of ankle surgery History of back surgery History of cardiac radiofrequency ablation History of open heart surgery History of replacement of both shoulder joints History of tubal ligation Pacemaker S/P right knee surgery Family History Family History Mother Hypertension Father Hypertension Family history of coronary artery disease Family history of emphysema Family history of congenital heart disease Sibling Emphysema of lung Social History Social History Smoking status: Never smoker Second hand tobacco smoke exposure: No Alcohol intake: former Substance use: never Substance use type: does not use Lack of Transportation: No Lack of Food: Never True Current Housing: I Have Housing Concerned About Future Housing: No Difficulty Paying Gas/Electric Bills: No Difficulty Paying for Meds: No Currently Unemployed: No Difficulty w/ Childcare or Family Care: No Living arrangements: with family Additional living arrangements comments: was dx with Alzheimer's two years ago Occupation/Education: retired 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 Gender identity (if verbalized by the patient): Female Spiritual care concerns: No Mod Sed Physical Exam Physical Exam Pre Procedural Exam: Normal: Appearance, Throat, Airway, Lungs, Heart Size, Heart Rate, Heart Rhythm, Neuro Exam and Extremities Hours since solid foods: 12 Hours since liquid intake: 12 Mallampati Classification: class II Internal Medicine - PN: Obj Da Vital Signs Vital Signs: Vital Signs - 24 hr 07/25/23 08:24 Temperature 36.6 C Pulse Rate 73 Respiratory Rate 20 Blood Pressure 128/61 Pulse Oximetry 99 Oxygen Delivery Room Air ASA Classification/Sedation ASA Classification/Sedation ASA Class: II Emergent: No Risks: Risks, benefits and alternatives explained and patient/family accepted plan for sedation. Patient re-evaluated immediately prior to sedation.
--- NOTE | 2023-07-25 11:07 | ECG_ITS ---
SEE SCANNED COPY FOR CONFIRMED REPORT. MTDD
--- NOTE | 2023-07-25 11:08 | P.PCNCC_ITS ---
Cardiac Cath Procedure Note Date of procedure:: 07/25/23 Performing physician:: Deon Cagle MD Indication:: permanently implanted pacemaker at [facility] Brief clinical history:: this is a 77-year-old woman who previously underwent septal myectomy for treatment of hypertrophic obstructive cardiomyopathy. She has a dual-chamber pacemaker which is at [facility]. Procedure Procedure performed:: Explantation of depleted pulse generator implantation of new dual-chamber pulse generator Sedation/Medication given:: fentanyl 50 mg Versed 2 mg case start time 10:33 a.m. case end time 10:57 a.m. sedation provided by Jovita Jessica RN, trained observer Access site:: chronically implanted left subclavian pocket Estimated blood loss:: minimal Procedure note:: patient was brought to the cardiac catheterization lab where the left anterior chest wall was prepped and draped in a sterile fashion. The site of the chronically implanted pacemaker device was identified. 20 cc of 1% lidocaine were then injected just inferior to the old incision over the palpable generator in the subcutaneous pocket. Plasma blade was then used to make an incision over the pocket and to provide cutaneous hemostasis using electrocautery. The fibrous capsule was then identified and opened using the plasma blade and the pacemaker and the attached leads were removed and found to be visually intact and unremarkable in appearance. The torque wrench was used to disconnect the leads from the chronically implanted pacemaker and the same torque wrench was then used to connect the leads to the new generator. The pocket was flushed with vancomycin infused saline. Following this the subcutaneous fat was then treated with some additional electrocautery. The device was then implanted into the pocket which was then closed in layers using 3-0 Vicryl in an interrupted fashion for the subcutaneous tissue and then 4-0 Vicryl in a running subcuticula r fashion for the skin. The wound was dressed with a Aquacel dressing and patient was taken back to the holding area preop. Procedure was well tolerated and uncomplicated. Findings:: The depleted pacemaker generator is a [employer] dual-chamber device model L101 serial number [id number]. Device was implanted on November 03, 2015. The new pacemaker generator is a [employer] model L311: ACCOLADE MRI DR IS-1. serial number [id number]. The device is programmed in the DDD mode lower rate limit 60 upper rate limit 130 av delay 220/ 300 millisecond. The chronically implanted atrial lead is a [employer] bipolar lead model 4469 FINELINE 2 EZ Sterox Bipolar IS-1 Positive Fix , serial number [id number]. P-waves are sensed at 4.2 mV threshold 1.2 volts at 0.4 millisecond impedance 459 Ohms. The chronically implanted ventricular lead is a [employer] bipolar lead model 4470 FINELINE 2 EZ Sterox Bipolar IS-1 Positive Fix, serial number [id number]. The ventricular R-wave is 25 mV threshold 0.9 volts at 0.4 millisecond impedance 527 Ohms. Conclusion:: 1. Successful uncomplicated explantation depleted dual-chamber pulse generator 2. successful uncomplicated implantation of new [employer] dual-chamber pulse generator for treatment of sick sinus syndrome in this 77-year-old lady who also has previously undergone septal myectomy for hypertrophic cardiomyopathy Deon Cagle MD [facility]
== END 2023-07-25 13:13 | disposition home or self-care (01) ==
PROVIDERS: PCP Family Medicine; Visit Provider Specialist
PROC: 0JPT0PZ Removal of Cardiac Rhythm Related Device from Trunk Subcutaneous Tissue and Fascia, Open Approach (ICD-10-PCS; CPT 33228; principal; 2023-07-25 10:00)
DX: Z45.010 Encounter for checking and testing of cardiac pacemaker pulse generator [battery] (principal); I42.8 Other cardiomyopathies; K21.9 Gastro-esophageal reflux disease without esophagitis; I25.2 Old myocardial infarction; E78.00 Pure hypercholesterolemia, unspecified; Z79.82 Long term (current) use of aspirin; Z98.890 Other specified postprocedural states; Z98.1 Arthrodesis status; Z86.79 Personal history of other diseases of the circulatory system; Z80.1 Family history of malignant neoplasm of trachea, bronchus and lung; Z82.49 Family history of ischemic heart disease and other diseases of the circulatory system
CPT/HCPCS: 33228; 36415; 80053; 80061; 85025; C1785; J2250; J3010; J3370; J7040

== ENCOUNTER 2023-07-25 07:48 | Outpatient (CLI) | payer MEDICARE, SELFPAY ==
[2023-07-25 08:31] LABS: Basophils Percent Auto 0.9 % (0.2-1.2); Eosinophils Absolute Auto 0.1 K/mm3 (0-0.3); Eosinophils Percent Auto 3.1 % (0-4.4); Hematocrit 45.4 % (37.0-47.0); Hemoglobin 14.6 g/dL (12.0-15.0); Immature Granulocyte Absolute 0.01 K/mm3 (0.00-0.031); Immature Granulocyte Percent A 0.2 % (0-0.5); Lymphocytes Absolute Auto 1.56 K/mm3 (0.9-3.2); Lymphocytes Percent Auto 34.7 % (18.3-44.2); Mean Corpuscular HGB Conc 32.2 g/dl (32-36); Mean Corpuscular Hemoglobin 29.7 pg (26-34); Mean Corpuscular Volume 92.3 fl (80-100); Mean Platelet Volume 10.1 fl (7.4-10.4); Monocytes Absolute Auto 0.5 K/mm3 (0.1-0.6); Monocytes Percent Auto 10.2 % (2.6-8.5); Neutrophils Absolute Auto 2.3 K/mm3 (1.3-6.7); Neutrophils Percent Auto 50.9 % (45.5-73.1); Platelet Count Result 190 k/mm3 (150-375); Red Blood Count 4.92 M/mm3 (4.2-5.4); Red Cell Distribution Width 13.3 % (11.5-14.5); White Blood Count 4.5 K/mm3 (4.5-10.0)
[2023-07-25 08:41] LABS: Alanine Aminotransferase 21 U/L (6-35); Albumin Level 4.7 g/dL (3.5-5.1); Alkaline Phosphatase 108 U/L (38-126); Anion Gap 5 mmol/L (4-12); Aspartate Amino Transferase 27 U/L (14-36); Bilirubin,Total 0.9 mg/dL (0.2-1.3); Blood Urea Nitrogen 29 mg/dL (7-17); Calcium 9.9 mg/dL (8.4-10.2); Carbon Dioxide 26 mmol/L (22-30); Chloride 107 mmol/L (98-107); Cholesterol 153 mg/dL (0-200); Estimated Glomerular Filt Rate > 60; Glucose 93 mg/dL (65-110); HDL Direct 74 mg/dL; Potassium 4.3 mmol/L (3.4-5.0); Sodium 138 mmol/L (137-145); Triglycerides 67 mg/dL (<150)
[2023-07-25 08:52] LABS: LDL Cholesterol Direct 71 mg/dL
== END 2023-07-25 07:49 | disposition home or self-care (01) ==
PROVIDERS: PCP Family Medicine; Visit Provider Physician Assistant Medical
DX: E78.5 Hyperlipidemia, unspecified (principal); D72.9 Disorder of white blood cells, unspecified; I51.89 Other ill-defined heart diseases; K11.20 Sialoadenitis, unspecified
CPT/HCPCS: 36415; 80053; 80061; 85025

== ENCOUNTER 2023-09-07 13:37 | Outpatient (CLI) | payer MEDICARE, SELFPAY ==
--- NOTE | ~2023-09-07 | CT_ITS ---
Noncontrast CT scan of the right shoulder CLINICAL HISTORY: Pain TECHNIQUE: Axial noncontrast imaging of the right shoulder was formed. Sagittal and coronal reformatt ed images were constructed. Dose reduction technique was used on this scan by utilizing automated exp osure control and iterative reconstruction technique. The dose-length product (DLP) was 198.03 mGy-cm . FINDINGS: Patient is status post right shoulder arthroplasty. There is apparent superior subluxation of the humeral head component with respect to the glenoid. There is mild AC joint degenerative change . No evidence of hardware loosening otherwise. No gross soft tissue abnormality seen. Subcutaneous soft tissues are unremarkable. No joint effusion evident. IMPRESSION: Possible superior subluxation of the humeral head component of the right shoulder arthroplasty with r espect to the glenoid. Mild AC joint degenerative change. Reviewed, dictated and finalized at location . IMPRESSION: Possible superior subluxation of the humeral head component of the right should er arthroplasty with respect to the glenoid. Mild AC joint degenerative change.
== END 2023-09-07 13:38 ==
PROVIDERS: PCP Orthopaedic Surgery; Visit Provider Nurse Practitioner Family
DX: M25.511 Pain in right shoulder (principal); R93.6 Abnormal findings on diagnostic imaging of limbs
CPT/HCPCS: 73200

== ENCOUNTER 2023-10-13 13:54 | Outpatient (CLI) | payer MEDICARE, SELFPAY ==
--- NOTE | ~2023-10-13 | CT_ITS ---
EXAMINATION: CT shoulder RT wo con DATE: 10/13/2023 14:22 INDICATION: Preoperative planning for right shoulder arthroplasty TECHNIQUE: High resolution computed tomography (CT) of the shoulder was performed without intravenous contrast. Additional sagittal and coronal reconstructions were performed. Automated exposure control and iterative reconstruction technique were employed. The dose-length product was 262.44 mGy-cm. COMPARISON: 09/07/2023 and radiograph dated 02/28/2023 FINDINGS: No evident change in a right total shoulder arthroplasty with mild cephalad subluxation of the prabhjot l component relative to the glenoid with mild narrowing of the subacromial space which measures 5 mm when compared with radiograph from 11/06/2020 and 01/14/2014. There is also been thinning of the acrom ion with remodeling of the undersurface when compared with the earlier radiographs. No fracture. The humeral component appears to remain well seated with no periprosthetic lucency. A metallic density as sociated with the glenoid component appears unchanged in position when compared with the prior radiog raphs with no surrounding lucency to suggest loosening. There has however been progressive narrowing of the space between the articular surfaces of the femoral component and the glenoid. There is irregu lar contour to the posterior and inferior glenoid which appears without significant change. Moderate acromioclavicular osteoarthritis. IMPRESSION: 1. Progressive narrowing of the joint space of a right total shoulder arthroplasty and mild progressi ve cephalad subluxation with respect to the glenoid which also results in narrowing of the subcarinal space with secondary remodeling of the undersurface of the acromion. Reviewed, dictated and finalized at location A. IMPRESSION: 1. Progressive narrowing of the joint space of a right total shoulder arthropla sty and mild progressive cephalad subluxation with respect to the glenoid which also results in narrowing of the subcarinal space with secondary remodeling of the undersurface of the acromion.
== END 2023-10-13 13:55 | disposition home or self-care (01) ==
PROVIDERS: PCP Family Medicine; Visit Provider Orthopaedic Surgery
DX: T84.098A Other mechanical complication of other internal joint prosthesis, initial encounter (principal); Z96.619 Presence of unspecified artificial shoulder joint; Z96.611 Presence of right artificial shoulder joint
CPT/HCPCS: 73200

== ENCOUNTER 2023-11-16 13:53 | Outpatient (CLI) | payer MEDICARE, SELFPAY ==
[2023-11-16 15:15] LABS: Basophils Percent Auto 0.4 % (0.2-1.2); Eosinophils Absolute Auto 0.1 K/mm3 (0-0.3); Eosinophils Percent Auto 1.6 % (0-4.4); Hematocrit 43.3 % (37.0-47.0); Hemoglobin 14.4 g/dL (12.0-15.0); Immature Granulocyte Absolute 0.01 K/mm3 (0.00-0.031); Immature Granulocyte Percent A 0.2 % (0-0.5); Lymphocytes Absolute Auto 1.68 K/mm3 (0.9-3.2); Lymphocytes Percent Auto 30.7 % (18.3-44.2); Mean Corpuscular HGB Conc 33.3 g/dl (32-36); Mean Corpuscular Hemoglobin 30.7 pg (26-34); Mean Corpuscular Volume 92.3 fl (80-100); Mean Platelet Volume 9.8 fl (7.4-10.4); Monocytes Absolute Auto 0.5 K/mm3 (0.1-0.6); Monocytes Percent Auto 8.9 % (2.6-8.5); Neutrophils Absolute Auto 3.2 K/mm3 (1.3-6.7); Neutrophils Percent Auto 58.2 % (45.5-73.1); Platelet Count Result 188 k/mm3 (150-375); Red Blood Count 4.69 M/mm3 (4.2-5.4); Red Cell Distribution Width 13.2 % (11.5-14.5); White Blood Count 5.5 K/mm3 (4.5-10.0)
[2023-11-16 16:26] LABS: MRSA (PCR) NOT DETECTED (NOT DETECTE)
== END 2023-11-16 13:54 | disposition home or self-care (01) ==
PROVIDERS: PCP Family Medicine; Visit Provider Orthopaedic Surgery
DX: Z01.818 Encounter for other preprocedural examination (principal); M12.811 Other specific arthropathies, not elsewhere classified, right shoulder
CPT/HCPCS: 36415; 85025; 87641

== ENCOUNTER 2023-12-08 01:24 | Day surgery (SDC) | payer MEDICARE, SELFPAY ==
[2023-11-16 14:04] VITALS: BMI 23.8
--- NOTE | 2023-11-16 14:25 | PC.NURSE ---
Report to the Outpatient Waiting Room, entrance under the green pavilion located off [facility], at time __6:00 AM on 12/08/23 . Planned Procedure Time: _7:30 AM .? Time changes happen often and if your time is changed the preop area will call you the afternoon before. - You and your visitor will be asked to self-screen and do not enter if you have any COVID symptoms. Please call surgeon if you need to reschedule. - A mask is optional within the hospital at this time. Patients may have clear liquids (water, carbonated beverages, clear teas, apple juice) until 3 hours prior to surgery( 4:30 AM) with a maximum of 20 ounces. - No food from midnight until time of surgery and no smoking - Infants may have breast milk until 4 hours before surgery, infant formula 6 hours prior to surgery. - Children will be allowed to drink immediately following surgery.? If applicable, please bring a bottle or sippy cup to assist with drinking. Juice, water, soda, and popsicles are readily available.? For infants on formula, please bring formula the day of surgery.? Pacifiers are allowed. Take only the following medications with a SIP of water on the morning of surgery: __NONE DO NOT STOP ANY OF YOUR OTHER PRESCRIPTION MEDICATIONS PRIOR TO SURGERY EXCEPT THE FOLLOWING Medications to discontinue per physician ___HOLD ASPIRIN 7 DAYS PRE OP PER DR ESPINAL LAST DOSE 11/30/23. HOLD ALL VITAMINS 3 DAYS PRE OP .LAST DOSE 12/04/23 Please no make-up, nail kyrgyz, hairspray, perfume, deodorant, or body powder the day of surgery.? No jewelry (including any body piercings) or valuables the day of surgery, leave them at home.? Please take a shower or bath the night before, or the morning of, surgery with an antibacterial soap.? Wear comfortable, loose fitting clothing.? Children are encouraged to wear pajamas. - Jewelry must be removed prior to entering the operating room.? Rings and piercings that are not removed may be cut off. - The hospital will not accept responsibility for valuables.? - Please leave all valuables, including medications, at home the day of surgery. If you are going home after surgery, a licensed truck driver instructor must drive you home.? - NO public transportation without another adult if you receive anesthesia. - We recommend that an adult stay with you for 24 hours following discharge. - We also recommend that you do not drive, make important decision, drink alcoholic beverages, or take any drugs that were not prescribed by your health care provider for at least 24 hours after your discharge time. Follow any additional instructions given to you from your surgeon. VERBAL AND WRITTEN instructions given to __PATIENT AND SPOUSE INÉS and asked if any additional questions and then verbalized understanding. Patient advised to call surgeon office or pre surgery nurse liaison [phone] if any additional questions.
[2023-11-16 14:49] VITALS: BP 116/62; PULSE 74; RESP 18; TEMP 36.7; O2SAT 98
[2023-12-08] VITALS (15 sets, daily range): BP systolic 109–134; BP diastolic 51–81; PULSE 61–74; RESP 12–18; TEMP 35.6–36.8; O2SAT 94–100; BMI 24.0
--- NOTE | ~2023-12-08 | XR_ITS ---
EXAMINATION: XR shoulder RT min 2V DATE: 12/08/2023 11:02 INDICATION: Right shoulder arthroplasty. Postop. TECHNIQUE: 3 views of right shoulder were obtained. COMPARISON: Right shoulder radiographs 02/28/2023 FINDINGS: There is a reverse ball and socket total right shoulder arthroplasty in near-anatomic align ment. No fracture. There is gas in the soft tissues, consistent with recent surgery. There is moderat e acromioclavicular joint osteoarthritis. Partially visualized are median sternotomy wires and pacer wires. IMPRESSION: 1. Reverse [id number] total right shoulder arthroplasty in near-anatomic alignment. Reviewed, dictated and finalized at location A. IMPRESSION: 1. Reverse [id number] total right shoulder arthroplasty in near-anatomic a lignment.
[2023-12-08] MEDS: LACTATED RINGERS 1,000 ML 30 ML IV CONT (06:45)
[2023-12-08] MEDS: TRANEXAMIC ACID 1,000MG/ISO100 1,000 MG/100 ML BAG 200 MG IVPB (07:00)
[2023-12-08] MEDS: ACETAMINOPHEN 500 MG TABLET 1000 MG PO (07:00)
--- NOTE | 2023-12-08 07:01 | WPDANESEPPF ---
Anes - Initial Pre Proc Eval Procedure: Operation Date: 12/08/23 07:30 Proposed Procedures p Right Revision Total Shoulder Arthroplasty - Leonid Khan MD Date/Time: 12/08/23 07:01 Surgeon: Leonid Khan MD Pre Op Diagnosis: Status Post Total Right Shoulder Arthroplasty Patient Data Age: 78 Gender: F Height: 1.63 m Weight: 63 kg Last Vital Signs Temp 36.7 C 11/16/23 14:49 Pulse 74 11/16/23 14:49 Resp 18 11/16/23 14:49 BP 116/62 11/16/23 14:49 Pulse Ox 98 11/16/23 14:49 O2 Del Method Room Air 11/16/23 14:49 Allergies Allergy/AdvReac Type Severity Reaction Status Date / Time Penicillins AdvReac Intermediate Nausea and Verified 11/16/23 14:05 Vomiting quinine AdvReac Intermediate NAUSEA/VOMI Verified 11/16/23 14:05 TING codeine AdvReac Mild Nausea And Verified 11/16/23 14:05 Vomiting morphine AdvReac Mild Nausea Verified 11/16/23 14:05 Home Medications Medication Instructions Recorded Confirmed Type aspirin 81 mg tablet 81 mg PO HS 08/07/21 11/16/23 History metoprolol succinate 25 mg See Rx Instructions .Route 03/17/23 11/16/23 Rx tablet,extended release 24 hr .COMPLEX #90 tabs atorvastatin 40 mg tablet See Rx Instructions .Route 05/02/23 11/16/23 Rx .COMPLEX #90 tabs cyclobenzaprine 10 mg tablet 10 mg PO .hs PRN muscle spasm #14 09/05/23 11/16/23 Rx tabs bupropion HCl 300 mg 24 hr tablet, 300 mg PO HS 11/16/23 11/16/23 History extended release cholecalciferol (vitamin D3) 1,250 1,250 mcg PO WEEKLY 11/16/23 11/16/23 History mcg (50,000 unit) tablet Patient hx anesthesia problems: none Family hx anesthesia problems: none Results Review: All pre-operative results and documents have been reviewed as part of the pre-operative evaluation. [facility] Past Medical History Medical History Acid reflux BMI 25.0-25.9,adult BMI 28.0-28.9,adult Heart attack Height loss High cholesterol History of vaginal delivery x 2 Stroke Surgical History Surgical History H/O excision of mass 09/22/20 excision of skin cyst left buttock H/O hand surgery History of ankle surgery History of back surgery History of cardiac radiofrequency ablation History of open heart surgery History of replacement of both shoulder joints History of tubal ligation Pacemaker S/P right knee surgery Family History Family History Mother Hypertension Father Hypertension Family history of coronary artery disease Family history of emphysema Family history of congenital heart disease Sibling Emphysema of lung Social History Social History Smoking status: Never smoker Second hand tobacco smoke exposure: No Alcohol intake: former Substance use: never Substance use type: does not use Lack of Transportation: No Lack of Food: Never True Current Housing: I Have Housing Concerned About Future Housing: No Difficulty Paying Gas/Electric Bills: No Difficulty Paying for Meds: No Currently Unemployed: No Difficulty w/ Childcare or Family Care: No Living arrangements: with family Additional living arrangements comments: was dx with Alzheimer's two years ago Occupation/Education: retired 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
--- NOTE | 2023-12-08 07:15 | WPDHPUPDATE1 ---
History and Physical Update Update Date/Time: 12/08/23 07:15 History and Physical has been reviewed, including an updated exam of the patient. There are NO changes in the patient's condition. Risks, benefits, and alternatives have been discussed and questions answered. Patient agrees to proceed with procedure.
[2023-12-08] MEDS: ceFAZolin 2 GM/D5W 50 ML 2 GM/50 ML BAG IVPB ×3 (07:30→23:06)
[2023-12-08] MEDS: VANCOMYCIN HCL 1,000 MG VIAL 1000 MG TOPICAL (09:14)
[2023-12-08] MEDS: SODIUM CHLORIDE 0.9% IV 37.7 ML, MORPHINE SULFATE INJ (*CRX) 2 MG, ROPivacaine HCL 1% 2... INFILTRATE (09:24)
--- NOTE | 2023-12-08 10:30 | W.PM.PROC2 ---
Procedure Note - Detailed Date of Procedure 12/08/23 Pre-op Diagnosis Glenoid component loosening right shoulder, status post anatomic total shoulder arthroplasty Post-op Diagnosis Same Procedure Performed Revision of anatomic shoulder to reverse total shoulder arthroplasty, right. ([id number]) Surgeon Leonid Khan MD Photography And Prints Curator Mariluz Garcia PA-C Anesthesia General and Regional (Interscalene block.) Indications Shoulder pain and dysfunction. Findings Convertible humeral stem retained. Loose glenoid component. Significant glenoid bone erosion. Intraoperative findings matched the 3 dimensional preoperative templating. The full wedge metal augment prosthesis placed at the posterior-superior position demonstrated optimal fit with minimal bone remaining. Small voids were filled allograft cancellous bone chips. The humeral component was stable. Retention of the humeral component was possible. Trialing revealed optimal coaptation of the implants, without over tensioning. Description of Procedure The patient was given an interscalene block in the preoperative area. Preoperative antibiotics were given. The patient was transferred to the operating room and a general anesthetic was administered. The beach chair position was used at 45 degrees. All bony prominences were padded. The head was carefully stabilized on the [facility] brick burner head. A sterile prep and drape was performed in the usual manner with ChloraPrep. The previous scar was marked and extended slightly. Sharp dissection was brought down through the subcutaneous tissues. Careful dissection was performed to expose the interval and protect the cephalic vein. The vein was retracted medially. The upper border of the pectoralis was not released. The previous subscapularis tenotomy was identified. It was intact. A subscapularis tenotomy was performed. The inferior capsule was released, exposing the humeral head. The head was removed with the removal tool. Five separate cultures were taken per routine. Several were tissue cultures including at the trunnion. The tissue was in good health without evidence of purulence or significant synovitis. The glenoid was carefully exposed. Significant erosions were confirmed. The metal marker from the central post was removed. Part of this plastic was removed and the remaining part appeared well ingrown and was left insight 2. The tissue was carefully prepared and debrided. Using the 3 dimensional planning software, the guide pin was placed for the full wedge. Good coverage of the inferior glenoid was confirmed. Reaming progressed according to the plan. Minimal bone was removed. Superior and inferior there were small defects which were bone grafted with allograft bone chips. The boss was drilled and prepared. The real implant was screwed into position with very good initial press fit. The purchase was excellent. Superior inferior and anterior screws were placed. The posterior screw did not have significant bone contact and the planning software demonstrated that the screw would be in danger of sitting in the spinal glenoid notch. The trial glenosphere was placed. The shoulder showed excellent balance and stability with good coaptation of the implants using the C polyethylene. The tray was placed at the 6 o'clock position. This provided excellent coverage of the proximal humerus. The real glenosphere was impacted into the taper and secured with the central screw The real humeral tray, and insert were impacted into position. The shoulder was copiously irrigated periodically with pulsatile lavage. The shoulder was reduced and stability confirmed. 1 gram of Vancomycin powder was placed in the joint. The deltopectoral space was reapproximated with number #2 Vicryl. The remaining tissue was closed with 0 Quill and 2-0 Quill running suture and steri-strips. A sterile silver occlusive dressing and shoulder immobilizer were placed. The patient was transferre
[2023-12-08] MEDS: fentaNYL CITRATE INJ (*CRX) 100 MCG/2 ML VIAL 25 MCG IV PUSH ×2 (10:45→10:48)
[2023-12-08] MEDS: SODIUM CHLORIDE 0.9% IV 1,000 ML 125 ML IV CONT (12:21)
[2023-12-08] MEDS: ACETAMINOPHEN 325 MG TABLET 650 MG PO ×3 (12:21→23:40)
--- NOTE | 2023-12-08 13:56 | ADMGEN ---
This patient, Radha Faye, was admitted to [facility] Surg Room 327-01. Patient/family oriented to hospital policies and general routines including ID bracelet, bed and alarms, visiting hours, pain management, procedures, bathroom and other care routines, personal items, smoking policy, room service/diet, and visiting hours. Information on how to activate the Rapid Response Team has been discussed. Patient/Family are encouraged to report perceived risks to care and to ask questions if they do not understand what they are told or what they should do.
--- NOTE | 2023-12-08 15:08 | PCOTNOTE ---
Attempted to see pt for OT evaluation however pt reports she is nauseous and just had zofran and declines getting up at this time. Will continue to follow.
[2023-12-08] MEDS: SENNA/DOCUSATE SODIUM TABLET 2 TAB PO (17:17)
[2023-12-08] MEDS: ASPIRIN 81 MG ENTERIC TABLET PO (20:22)
[2023-12-08] MEDS: buPROPion HCL XL (24 HR) 150 MG TABCR 300 MG PO (20:22)
[2023-12-08] MEDS: METOPROLOL SUCCINATE EXT REL 25 MG TABCR PO (20:22)
[2023-12-08] MEDS: FAMOTIDINE 20 MG TABLET PO (20:22)
[2023-12-08] MEDS: oxyCODONE/ACETAMINOPHEN (*CRX) 10-325 MG TABLET 1 TAB PO (23:06)
[2023-12-09 00:35] VITALS: BP 119/57; PULSE 75; RESP 20; TEMP 37.4; O2SAT 96
[2023-12-09 05:05] VITALS: BP 121/55; PULSE 77; RESP 20; TEMP 37; O2SAT 96
[2023-12-09] MEDS: oxyCODONE/ACETAMINOPHEN (*CRX) 10-325 MG TABLET 1 TAB PO ×2 (05:17→11:30)
[2023-12-09 06:28] LABS: Basophils Percent Auto 0.1 % (0.2-1.2); Eosinophils Percent Auto 0.2 % (0-4.4); Hematocrit 37.1 % (37.0-47.0); Hemoglobin 12.2 g/dL (12.0-15.0); Immature Granulocyte Absolute 0.03 K/mm3 (0.00-0.031); Immature Granulocyte Percent A 0.3 % (0-0.5); Lymphocytes Absolute Auto 1.38 K/mm3 (0.9-3.2); Lymphocytes Percent Auto 15.8 % (18.3-44.2); Mean Corpuscular HGB Conc 32.9 g/dl (32-36); Mean Corpuscular Hemoglobin 30.6 pg (26-34); Mean Platelet Volume 9.7 fl (7.4-10.4); Monocytes Absolute Auto 0.9 K/mm3 (0.1-0.6); Monocytes Percent Auto 9.9 % (2.6-8.5); Neutrophils Absolute Auto 6.4 K/mm3 (1.3-6.7); Neutrophils Percent Auto 73.7 % (45.5-73.1); Platelet Count Result 143 k/mm3 (150-375); Red Blood Count 3.99 M/mm3 (4.2-5.4); Red Cell Distribution Width 13.4 % (11.5-14.5); White Blood Count 8.7 K/mm3 (4.5-10.0)
[2023-12-09 06:42] LABS: Anion Gap 7 mmol/L (4-12); Blood Urea Nitrogen 18 mg/dL (7-17); Calcium 8.7 mg/dL (8.4-10.2); Carbon Dioxide 24 mmol/L (22-30); Chloride 104 mmol/L (98-107); Estimated CRCL calculation 56 ml/min; Estimated Glomerular Filt Rate > 60; Glucose 118 mg/dL (65-110); Potassium 3.7 mmol/L (3.4-5.0); Sodium 135 mmol/L (137-145)
[2023-12-09] MEDS: SENNA/DOCUSATE SODIUM TABLET 2 TAB PO (08:08)
[2023-12-09] MEDS: polyethylene glycoL 3350 17 GM POWD.PACK PO (08:09)
[2023-12-09] MEDS: ceFAZolin 2 GM/D5W 50 ML 2 GM/50 ML BAG IVPB (08:09)
[2023-12-09] MEDS: FAMOTIDINE 20 MG TABLET PO (08:09)
[2023-12-09] MEDS: ATORVASTATIN 40 MG TABLET PO (08:09)
[2023-12-09] MEDS: ASPIRIN 81 MG ENTERIC TABLET PO (08:09)
[2023-12-09] MEDS: predniSONE 5 MG TABLET PO (08:10)
--- NOTE | 2023-12-09 08:51 | PM.DS ---
DS: Admitting Diagnosis Discharge Date 12/09/23 Admitting Diagnosis Failed anatomic total shoulder. Rotator cuff tear. DS: Discharge Diagnosis Discharge Diagnosis (1) Status post reverse total arthroplasty of right shoulder: Code(s): Z96.611 - Presence of right artificial shoulder joint Status: Acute Assessment and Plan: Postop day 1: Right reverse total shoulder arthroplasty. Patient tolerated procedure well. No complications. Pain manageable with pain medication. No numbness or tingling. We had a lengthy discussion regarding postoperative wound care, limitations, expectations, and exercises. Patient shows good understanding. She has had initial physical therapy and is tolerating it well. DVT prophylaxis: 81 mg baby aspirin b.i.d. for 14 days. Pain medication: Percocet. Prednisone. Antibiotic: Doxycycline. Patient has followup appointment with Dr. Khan in 3 weeks. DS: Summary Hospital Course Hospital Course: Patient has had initial PT/OT and is tolerating it well. Status at Discharge Functional status at discharge: independent ambulation Overall status at discharge: patient is progressing back to baseline Time Spent with Patient Time attestation: Total time spent providing and/or coordinating discharge services: Exam Narrative: Normal weight Female. Resting comfortably in chair. Wearing sling. Dressing dry and intact with no drainage. Moderate swelling. Moderate ecchymosis. No erythema. No hematoma. Range of motion limited due to pain. Calf nontender. Neurologic status intact. No varicosities. Distal pulses palpable. DS: Data Data Completed and Pending Pending studies at discharge: Pending at discharge 12/08/23 08:22 Surgical [PTH] Routine Surgical [PTH] Routine Surgical [PTH] Routine 12/08/23 08:30 Surgical [PTH] Routine Labs on day of discharge: Labs from last 24 hours 12/09/23 06:19 WBC 8.7 RBC 3.99 L Hgb 12.2 Hct 37.1 MCV 93.0 MCH 30.6 MCHC 32.9 RDW 13.4 Plt Count 143 L MPV 9.7 Immature Gran % (Auto) 0.3 Neut % (Auto) 73.7 H Lymph % (Auto) 15.8 L Lawrence % (Auto) 9.9 H Eos % (Auto) 0.2 Baso % (Auto) 0.1 L Lymph # (Auto) 1.38 Lawrence # (Auto) 0.9 H Eos # (Auto) 0.0 Baso # (Auto) 0.0 Abs Immat Gran (auto) 0.03 Absolute Neuts (auto) 6.4 Absolute Nucleated RBC 0.000 Nucleated RBC % 0.0 Sodium 135 L Potassium 3.7 Chloride 104 Carbon Dioxide 24 Anion Gap 7 BUN 18 H D Creatinine 0.60 L Estim Creat Clear Calc 56 Estimated GFR > 60 Glucose 118 H Calcium 8.7 Discharge Plan Discharge Patient Disposition: Home, Self-Care Discharge Instructions: See green instruction sheets Stand Alone Forms: General Discharge Instructions Follow-up/Referrals: Mariluz Garcia PA [Physician Boilermaker Loftsman] - Discharge Medications: New doxycycline hyclate 100 mg capsule 100 mg PO BID 21 Days Qty: 42 0RF aspirin 81 mg tablet,delayed release (DR/EC) 81 mg PO BID 14 Days Qty: 28 0RF oxycodone-acetaminophen 5-325 mg tablet 1 - 2 tablet PO Q4-6H PRN (Reason: pain) 7 Days Qty: 30 0RF prednisone 5 mg tablet 5 mg PO DAILY 21 Days Qty: 21 0RF Continued metoprolol succinate 25 mg tablet extended release 24 hr See Rx Instructions .ROUTE .COMPLEX Qty: 90 2RF Dose Instruction: TAKE 1 TABLET BY MOUTH AT BEDTIME Rx Instructions: TAKE 1 TABLET BY MOUTH AT BEDTIME cyclobenzaprine 10 mg tablet 10 mg PO .hs PRN (Reason: muscle spasm) Qty: 14 0RF bupropion HCl 300 mg tablet extended release 24 hr 300 mg PO HS cholecalciferol (vitamin D3) 1,250 mcg (50,000 unit) Tablet 1,250 mcg PO WEEKLY Patient Comments: TAKES ON SUNDAYS aspirin 81 mg Tablet 81 mg PO HS atorvastatin 40 mg tablet See Rx Instructions .ROUTE .COMPLEX Qty: 90 2RF Dose Instruction: Take 1 tablet by mouth once daily Rx Instructions: Take 1 tabl
[2023-12-09] MEDS: ONDANSETRON INJ 4 MG/2 ML VIAL IV PUSH (08:57)
[2023-12-09 09:34] VITALS: BP 140/64; PULSE 74; RESP 14; TEMP 36.5; O2SAT 99
[2023-12-09] MEDS: ACETAMINOPHEN 325 MG TABLET 650 MG PO (11:30)
== END 2023-12-09 12:50 | disposition home or self-care (01) ==
LOC: ANHSURGERY 05:56 → ANH3MEDSUR 11:52
PROVIDERS: Physician Assistant Surgical; PCP Family Medicine; Visit Provider Orthopaedic Surgery
PROC: (CPT 23474; principal; 2023-12-08 07:30)
DX: T84.038A Mechanical loosening of other internal prosthetic joint, initial encounter (principal); Z96.611 Presence of right artificial shoulder joint; M75.121 Complete rotator cuff tear or rupture of right shoulder, not specified as traumatic; Y83.8 Other surgical procedures as the cause of abnormal reaction of the patient, or of later complication, without mention of misadventure at the time of the procedure; I25.2 Old myocardial infarction; G89.29 Other chronic pain; E78.00 Pure hypercholesterolemia, unspecified; Z79.82 Long term (current) use of aspirin; Z95.0 Presence of cardiac pacemaker; Z86.73 Personal history of transient ischemic attack (TIA), and cerebral infarction without residual deficits
CPT/HCPCS: 23474; 36415; 73030; 80048; 85025; 86850; 86900; 86901; 87070; 87075; 87205; 88305; 97110; 97161; 97165; 97530; 97535; A4565; A9270; C1713; J0171; J0690; J1100; J1885; J2270; J2371; J2405; J2704; J2795; J3010; J3370; J7030; J7120; J7512

== ENCOUNTER 2024-01-02 11:02 | Outpatient (CLI) | payer MEDICARE, SELFPAY ==
--- NOTE | ~2024-01-02 | XR_ITS ---
Right Shoulder Technique: AP and scapular Y views were obtained. Clinical History: Postoperative COMPARISON: 12/08/2023 Findings: No fracture or dislocation is seen. Right shoulder arthroplasty is unchanged. Soft tissues are unremarkable. Impression: Stable right shoulder arthroplasty. No acute abnormality. Reviewed, dictated and finalized at location . Impression: Stable right shoulder arthroplasty. No acute abnormality.
== END 2024-01-02 11:03 | disposition home or self-care (01) ==
LOC: ANHIMG 11:10
PROVIDERS: PCP Family Medicine; Visit Provider Physician Assistant Surgical
DX: Z96.611 Presence of right artificial shoulder joint (principal)
CPT/HCPCS: 73030

== ENCOUNTER 2024-01-27 09:08 | Outpatient (CLI) | payer MEDICARE, SELFPAY ==
--- NOTE | ~2024-01-27 | XR_ITS ---
Right Shoulder Technique: AP and scapular Y views were obtained. Clinical History: Arthroplasty COMPARISON: 01/02/2024 Findings: No fracture or dislocation is seen. Right shoulder arthroplasty hardware is unchanged. AC j oint intact.. Soft tissues are unremarkable. Impression: No acute abnormality. Status post right shoulder arthroplasty. Reviewed, dictated and finalized at location . Impression: No acute abnormality. Status post right shoulder arthroplasty.
== END 2024-01-27 09:09 | disposition home or self-care (01) ==
PROVIDERS: PCP Family Medicine; Visit Provider Orthopaedic Surgery
DX: Z96.611 Presence of right artificial shoulder joint (principal)
CPT/HCPCS: 73030

== ENCOUNTER 2024-11-21 09:25 | Outpatient (CLI) | payer MEDICARE, SELFPAY ==
--- NOTE | ~2024-11-21 | XR_ITS ---
EXAMINATION: XR knee RT min 4V, 11/21/2024 9:50 CDT HISTORY: CHRONIC primary osteoarthritis, right knee COMPARISON: No comparisons available. Findings: No acute fracture or malalignment. Moderate to severe tricompartmental degenerative changes most marked involving the lateral joint space with small effusion Soft tissues unremarkable. Impression: No acute fracture or malalignment. Reviewed, dictated and finalized at location A. Impression: No acute fracture or malalignment.
--- NOTE | ~2024-11-21 | XR_ITS ---
XR knee LT min 4V 11/21/2024 10:20 Indication: Left knee pain Procedure: 4 views left knee Comparison: 11/04/2016 Findings: Mild tricompartment osteoarthritis. No fracture, subluxation or dislocation. No significant joint effusion. No foreign bodies. Impression: 1: Mild tricompartment osteoarthritis. Reviewed, dictated and finalized at location O. Impression: 1: Mild tricompartment osteoarthritis.
== END 2024-11-21 09:26 | disposition home or self-care (01) ==
PROVIDERS: PCP Family Medicine; Visit Provider Nurse Practitioner Family
DX: M17.0 Bilateral primary osteoarthritis of knee (principal); M25.461 Effusion, right knee
CPT/HCPCS: 73564

== ENCOUNTER 2025-01-30 08:12 | Outpatient (CLI) | payer MEDICARE, SELFPAY ==
--- OUTSIDE RECORDS SUMMARY | 2025-01-30 08:22 | XMS_ITS | Clinical Summary ---
Author Organization [facility] Address [address] [place] [address] Care Team Providers Care C[employer] Name Role Phone Leona Avila PA-C Primary Care Provider [phone] Allergies Active Allergy Reactions Criticality Noted Date Comments Codeine Unknown 01/05/2021 Morphine Unknown 01/05/2021 Penicillin G Benzathine Unknown 01/05/2021 Penicillins Unknown 01/05/2021 Quinine Unknown 01/05/2021 Medications aspirin EC (ECOTRIN) 81 MG tablet Take 1 tablet (81 mg total) by mouth daily. Active atorvastatin 40 MG tablet Take 1 tablet (40 mg total) by mouth daily. 03/09/2021 Active buPROPion XL 300 MG 24 hr tablet Take 1 tablet (300 mg total) by mouth every morning. 03/02/2021 Active cholecalciferol 1.25 MG (82415 UT) capsule Take 1 capsule (50,000 Units total) by mouth weekly. Active metoprolol succinate ER 25 MG 24 hr tablet Take 1 tablet (25 mg total) by mouth daily. 04/04/2021 Active atorvastatin (LIPITOR) 40 MG tabletIndication s:Cerebrovascula r accident (CVA), unspecified mechanism (CMS/HCC HHS/HCC) Take 1 tablet (40 mg total) by mouth nightly at bedtime. 30 tablet 11 07/18/2023 Active atorvastatin (LIPITOR) 40 MG tabletIndication s:Cerebrovascula r accident (CVA), unspecified mechanism (CMS/HCC HHS/HCC) Take 1 tablet (40 mg total) by mouth nightly at bedtime. 90 tablet 11 04/16/2024 Active Active Problems Problem Noted Date Diagnosed Date Pure hypercholesterolemia 12/18/2018 Overview (11/05/2022): Last Assessment & Plan: On chronic lipid lowering therapy with good control. No changes made. Abnormal weight gain 12/11/2018 Overview (11/05/2022): Last Assessment & Plan: Overall Condition Chronic Condition: Uncontrolled. Treatment: New Medication: Start wellbutrin. and Recommended Therapeutic Lifestyle Modification Follow up in 3 months Overweight 12/11/2018 Overview (11/05/2022): Last Assessment & Plan: Overall Condition Chronic Condition: Uncontrolled. Treatment: New Medication: Start Wellbutrin and Vitamin B12. 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 She has no murmur. Pacemaker 10/06/2016 Overview (11/05/2022): Phillip Sci DDD Benja DAVIS pacemaker implanted on 11/03/15 for SSS/LBBB, [place] (Card) [place] (EP) - [place]itude Last Assessment & Plan: Normal pacemaker function. She uses her pacemaker very little. No arrhythmias detected. 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 Overview (11/05/2022): Late effects of cerebrovascular disease Dizziness and giddiness 11/05/2013 Overview (11/05/2022): Dizziness and giddiness Immunizations Immunization Administration Dates Next Due Fluzone High Dose - >Age 65 (Prefilled Syringe) 11/20/2019 Influenza (Generic) 01/22/2016 Influenza Adult (Generic) 03/09/2021,04/2018,01/19/2018,2017,01/31/2017,01/11/2016 Pneumococcal (Pneumovax 23) 01/27/2019 Pneumococcal (Prevnar 13) 08/12/2015 Shingrix 03/26/2020,11/20/2019 Family History Medical History Relation Comments Emphysema Father Heart Disease Father All my father's siblings had heart issues Hypertension Father Hypertension Mother Only child, sarah ry not good on her health Relation Status Comments Father Mother Social History Tobacco Use Types Packs/Day Years Used Date Smoking Tobacco: Never Passive Smoke Exposure: Never Smokeless Tobacco: Never Tobacco Cessation:Counseling Given: No Comments:Never smoked Alcohol Use Standard Drinks/Week Comments Not Currently 0 (1 standard drink = 0.6 oz pure alcohol) Occassional holiday drink only PHQ-2 Answer Date Recorded Patient Health Questionnaire-2 Score 0 04/16/2024 Comments No Sex and Gender Information Value Date Recorded Sex Assigned at Not on file Legal Sex Female 11:14 AM CDT Gender Identity Not on file Sexual Orientation Not on file Last Filed Vital Signs Vital Sign Reading Time Taken Comments Blood Pressure 120/76 04/16/2024 2:24 PM MANAGER SUPPORT SERVICES Pulse 75 04/16/2024 2:24 PM MANAGER SUPPORT SERVICES Temperature 35.7 C (96.3 F) 04/16/2024 2:24 PM MANAGER SUPPORT SERVICES Respiratory Rate 16 11/05/2022 8:53 AM CDT Oxygen Saturation 98% 04/16/2024 2:24 PM MANAGER SUPPORT SERVICES Inhaled Oxygen Concentration - - Weight 67.2 kg (148 lb 1.6 oz) 04/16/2024 2:24 P M MANAGER SUPPORT SERVICES Height 162.6 cm (5' 4) 04/16/2024 2:24 PM MANAGER SUPPORT SERVICES Body Mass Index 25.42 04/16/2024 2:24 PM MANAGER SUPPORT SERVICES Plan of Treatment Upcoming Encounters Date Type Department Care Team (Late st Contact Info) Description 02/26/2025 9:40 AM MANAGER SUPPORT SERVICES Office Visit [facility] Multispecialty [facility] - [facility] [address], [address] [place] [address] Earl Castellon MD [address] [place] [address] Health Maintenance Due Date Last Done Comments DTaP, Tdap and Td Vaccines (1 - Tdap) 11/30/1964 Annual Medicare Wellness Visit 2009 Dexa Scan (General) 2009 RSV Immunization or 60+ Years (1 - 1-dose 75+ series) 11/30/2019 COVID-19 Vaccine ( season) 2024 01/24/2021, 06/13/2020, 05/16/2020 Influenza Adult (#1) 2024 03/09/2021, 11/20/2019, 01/27/2019, Additional history exists Pneumococcal Vaccine: 50+ Years Completed 01/27/2019, 08/12/2015 Zoster Vaccines Completed 03/26/2020, 11/20/2019 PHQ-2 (Physician [place]) Completed 04/16/2024 Hepatitis A Vaccines Aged Out No long er eligible based on patient's age to complete this topic Meningococcal B Vaccine Aged Out No l onger eligible based on patient's age to complete this topic Meningococcal Vaccine Aged Out No cortney domonique eligible based on patient's age to complete this topic RSV Immunizations Under 20 Months Aged Out No longer eligible based on patient's age to complete this topic Insurance MEDICARE [facility] Care Teams [employer] Relationship Specialty Start Date End Date Leona Avila PA-C [address] [place], [place] [id number] PCP - General HAT CONDITIONER 01/05/21
--- OUTSIDE RECORDS SUMMARY | 2025-01-30 08:22 | XMS_ITS | Encounter Summary ---
Author Organization [facility] Address [address] [place] [address] Care Team Providers Care Assembly Machine Tool Setter Name Role Phone Charli Dewey MD Primary Care Provider [phone] Encounter Details Date Type Department Care Team (Late st Contact Info) Description 04/19/2016 Orders Only Arrhythmia Center ProviderMandy MD [address] [place] [id number] Social History Tobacco Use Types Packs/Day Years Used Date Smoking Tobacco: Never Assessed Alcohol Use Standard Drinks/Week Comments No 0 (1 standard drink = 0.6 oz pur e alcohol) Comments Unknown Sex and Gender Information Value Date Recorded Sex Assigned at Not on file Legal Sex Female 7:32 PM PLANT DIRECTOR Gender Identity Not on file Sexual Orientation Not on file documented as of this encounter Plan of Treatment Not on file documented as of this encounter Procedures Procedure Name Priority Date/Time Associated Diagnosis Comments CARDIOLOGY REPORT 04/19/2016 documented in this encounter Results * CARDIOLOGY REPORT (04/19/2016) Anatomical Region Laterality Modality Other Narrative 04/19/2016 Ordered by an unspecified provider. Historical Provider [facility] J[facility] REAGAN Final Result documented in this encounter Visit Diagnoses Not on filedocumented in this encounter Care Teams Assembly Machine Tool Setter Relationship Specialty Start Date End Date Charli Dewey MD PCP - General 05/23/15 documented as of this encounter
--- OUTSIDE RECORDS SUMMARY | 2025-01-30 08:22 | XMS_ITS | Encounter Summary ---
Author Organization [facility] Address [address] [place] [address] Care Team Providers Care Oyster Unloader Name Role Phone Charli Dewey MD Primary Care Provider [phone] Encounter Details Date Type Department Care Team (Late st Contact Info) Description 07/19/2016 Orders Only Arrhythmia Center ProviderMandy MD [address] [place] [address] Social History Tobacco Use Types Packs/Day Years Used Date Smoking Tobacco: Never Assessed Alcohol Use Standard Drinks/Week Comments No 0 (1 standard drink = 0.6 oz pur e alcohol) Comments Unknown Sex and Gender Information Value Date Recorded Sex Assigned at Not on file Legal Sex Female 7:32 PM INTERNATIONAL TRADE TEACHER Gender Identity Not on file Sexual Orientation Not on file documented as of this encounter Plan of Treatment Not on file documented as of this encounter Procedures Procedure Name Priority Date/Time Associated Diagnosis Comments CARDIOLOGY REPORT 07/19/2016 documented in this encounter Results * CARDIOLOGY REPORT (07/19/2016) Anatomical Region Laterality Modality Other Narrative 07/19/2016 Ordered by an unspecified provider. Historical Provider [facility] REAG[facility] Final Result documented in this encounter Visit Diagnoses Not on filedocumented in this encounter Care Teams Oyster Unloader Relationship Specialty Start Date End Date Charli Dewey MD PCP - General 05/23/15 documented as of this encounter
--- OUTSIDE RECORDS SUMMARY | 2025-01-30 08:22 | XMS_ITS | Clinical Summary ---
Author Organization [facility] [place] Address [address] [place] [address] Care Team Providers Care Rn Homecare Name Role Phone Charli Dewey MD Primary Care Provider [phone] Allergies Active Allergy Reactions Criticality Noted Date Comments Codeine Nausea and Vomiting Low 12/20/2016 Penicillins Other (See Comments) 12/20/2016 Unknown reaction per pt/had as child Medications atorvastatin (LIPITOR) 10 mg tablet Take 10 mg by mouth late in the day. Active clopidogrel (PLAVIX) 75 mg Tablet Take 75 mg by mouth daily. Active metoprolol tartrate (LOPRESSOR) 25 mg tablet Take 25 mg by mouth daily. Active aspirin (ECOTRIN EC) 81 mg Tablet, Delayed Release (E.C.) Take 81 mg by mouth daily. Active cholecalciferol , Vitamin D3, 2,000 unit Tablet Take 2,000 Units by mouth daily. Active OTHER Cramp defense 1 q 2-3 hrs prn leg cramps . Active Active Problems Problem Noted Date Diagnosed Date Leukopenia 12/20/2016 Family History Medical History Relation Name Comments Respiratory Disease Brother 1 Heart Disease Brother 2 Heart Disease Brother 3 Heart Disease Father Relation Name Status Comments Brother 1 Brother 2 Alive Brother 3 Alive Father Mother Social History Tobacco Use Types Packs/Day Years Used Date Smoking Tobacco: Never Alcohol Use Standard Drinks/Week Comments No 0 (1 standard drink = 0.6 oz pur e alcohol) rarely Comments No Sex and Gender Information Value Date Recorded Sex Assigned at Not on file Legal Sex Female 9:11 AM CDT Gender Identity Not on file Sexual Orientation Not on file Last Filed Vital Signs Vital Sign Reading Time Taken Comments Blood Pressure 121/70 05/10/2017 1:38 PM SCRIPT DEVELOPER Pulse 90 05/10/2017 1:38 PM SCRIPT DEVELOPER Temperature 36.8 C (98.2 F) 05/10/2017 1:38 PM SCRIPT DEVELOPER Respiratory Rate 18 05/10/2017 1:38 PM SCRIPT DEVELOPER Oxygen Saturation 93% 05/10/2017 1:38 PM SCRIPT DEVELOPER Inhaled Oxygen Concentration - - Weight 78.5 kg (173 lb) 05/10/2017 1:38 PM SCRIPT DEVELOPER Height 161.9 cm (5' 3.75) 05/10/2017 1:38 PM CS T Body Mass Index 29.93 05/10/2017 1:38 PM SCRIPT DEVELOPER Plan of Treatment Health Maintenance Due Date Last Done Comments DTAP/TDAP/TD VACCINES (1 - Tdap) 11/30/1964 PNEUMOCOCCAL VACCINE 50+ YEA RS (1 of 1 - PCV) 1994 ZOSTER VACCINE (1 of 2) 1994 RSV VACCINE (60+ or ) (1 - 1-dose 75+ series) 11/30/2019 OSTEOPOROSIS SCREENING 06/30/2021 06/30/2016 INFLUENZA VACCINE (#1) 2024 01/22/2016 COLORECTAL SCREENING Discontinued 06/05/2018, 06/06/19 19 Colorectal Cancer Screening Discontinued FIT-DNA Q 3 years Discontinued FIT/FOBT Q 1 year Discontinued Flex Sig/CT Colonography Q 5 years Discontinued Insurance MEDICARE PART A AND B [facility] SU[facility] Care Teams Rn Homecare Relationship Specialty Start Date End Date Charli Dewey MD [address] [place] [address] PCP - General Family Practice 12/14/16
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
[2025-01-30 09:30] LABS: Hematocrit 44.6 % (37.0-47.0); Hemoglobin 14.8 g/dL (12.0-15.0); Immature Granulocyte Percent A 0.3 % (0-0.5); Lymphocytes Absolute Auto 1.30 K/mm3 (0.9-3.2); Mean Corpuscular HGB Conc 33.2 g/dl (32-36); Mean Corpuscular Hemoglobin 30.4 pg (26-34); Mean Corpuscular Volume 91.6 fl (80-100); Nucleated Red Blood Cells Absolute Auto 0.000 K/mm3 (0.0-0.012); Nucleated Red Blood Cells Perc 0.0 % (0.0-0.2); Platelet Count Result 198 k/mm3 (150-375); Red Blood Count 4.87 M/mm3 (4.2-5.4); White Blood Count 3.6 K/mm3 (4.5-10.0)
[2025-01-30 09:54] LABS: Alanine Aminotransferase 21 U/L (6-35); Albumin Level 4.5 g/dL (3.5-5.1); Alkaline Phosphatase 67 U/L (38-126); Anion Gap 8 mmol/L (4-12); Aspartate Amino Transferase 30 U/L (14-36); Bilirubin,Total 0.7 mg/dL (0.2-1.3); Blood Urea Nitrogen 16 mg/dL (7-17); Calcium 9.7 mg/dL (8.4-10.2); Carbon Dioxide 25 mmol/L (22-30); Chloride 105 mmol/L (98-107); Cholesterol 152 mg/dL (0-200); Estimated Glomerular Filt Rate > 60; Glucose 88 mg/dL (65-110); HDL Direct 67 mg/dL; Potassium 4.0 mmol/L (3.4-5.0); Sodium 138 mmol/L (137-145); Total Protein 7.3 g/dL (6.3-8.2); Triglycerides 80 mg/dL (<150)
[2025-01-30 10:30] LABS: Thyroid Stimulating Hormone 2.040 uIU/mL (0.465-4.680)
== END 2025-01-30 08:13 | disposition home or self-care (01) ==
PROVIDERS: PCP Family Medicine; Visit Provider Physician Assistant Medical
DX: I42.1 Obstructive hypertrophic cardiomyopathy (principal); K21.9 Gastro-esophageal reflux disease without esophagitis; E78.5 Hyperlipidemia, unspecified; R20.0 Anesthesia of skin
CPT/HCPCS: 36415; 80053; 80061; 84443; 85025

== ENCOUNTER 2025-02-26 10:54 | Outpatient (CLI) | payer MEDICARE, SELFPAY ==
[2025-02-26 11:10] LABS: Hematocrit 45.4 % (37.0-47.0); Hemoglobin 14.9 g/dL (12.0-15.0); Immature Granulocyte Percent A 0.4 % (0-0.5); Lymphocytes Absolute Auto 1.34 K/mm3 (0.9-3.2); Mean Corpuscular HGB Conc 32.8 g/dl (32-36); Mean Corpuscular Hemoglobin 30.8 pg (26-34); Mean Corpuscular Volume 93.8 fl (80-100); Nucleated Red Blood Cells Absolute Auto 0.000 K/mm3 (0.0-0.012); Nucleated Red Blood Cells Perc 0.0 % (0.0-0.2); Platelet Count Result 193 k/mm3 (150-375); Red Blood Count 4.84 M/mm3 (4.2-5.4); White Blood Count 4.9 K/mm3 (4.5-10.0)
== END 2025-02-26 10:55 | disposition home or self-care (01) ==
LOC: ANHLAB 10:57
PROVIDERS: PCP Family Medicine; Visit Provider Physician Assistant Medical
DX: D72.819 Decreased white blood cell count, unspecified (principal)
CPT/HCPCS: 36415; 85025